=== PATIENT | male | born 1950 | race Caucasian/White ===

== ENCOUNTER → 2023-02-02 07:43 | Outpatient (CLI) | payer OTHER, SELFPAY ==
--- NOTE | 2023-02-02 07:48 | DI.ECHO.S_ITS ---
[facility] +---------+ : : [address] : : : : [id number] : : : : Phone: [phone]+ Echocardiogram Report + + :Name: LINDA WORLEY Study Date: 02/02/2023 Height: 64 in : :[facility] ReadingLocation: Weight: 146 lb : : Gender: Male BSA: 1.7 m2 : :: 1950 Age: 72 yrs BP: 148/88 mmHg: :Reason For Study: DIASTOLIC HEART FAILURE : :Ordering Physician: ROXY, : :MEREDITH Performed By: Amy Parks : :Referring: MEREDITH RAMSEY : + + Interpretation Summary The left ventricle is normal in size. The ejection fraction is estimated to be 55-60%. The right ventricle is grossly normal size. The right ventricular systolic function is normal. There is mild mitral regurgitation. The IVC is of normal diameter and collapses greater than 50% with a sniff. This suggests a low right atrial pressure of 3 mm Hg. There is aortic root sclerosis/calcification. Mild atherosclerotic plaque(s) in the aortic arch. Procedure: A two-dimensional transthoracic echocardiogram with color flow and Doppler was performed. The study quality was technically adequate. There is no prior echocardiogram noted for this patient. The patient was in sinus bradycardia with heart rates between 47-54 bpm during the exam. Left Ventricle: The left ventricle is normal in size. There is borderline concentric left ventricular hypertrophy. There is no thrombus. The ejection fraction is estimated to be 55-60%. There are no focal wall motion abnormalities. MV E/A: 1.0 Med Peak E' Charles: 4.2 cm/sec E/E' med: 14.5. No advanced diastolic dysfunction. Right Ventricle: The right ventricle is grossly normal size. The right ventricular systolic function is normal. Atria: The left atrium is borderline dilated. Right atrial size is normal. There is no Doppler evidence for an interatrial shunt. Mitral Valve: There is mild mitral annular calcification. There is mild mitral regurgitation. Aortic Valve: The aortic valve is trileaflet. There is mild aortic valve sclerosis. There is no aortic valve stenosis. No aortic regurgitation is present. Tricuspid Valve: The tricuspid valve is normal. There is trace tricuspid regurgitation. Pulmonary artery pressures cannot be estimated because of the lack of a measurable TR jet velocity. Pulmonic Valve: The pulmonic valve leaflets are thin and pliable; valve motion is normal. There is trace pulmonic regurgitation. Great Vessels: The aortic root is normal size. There is aortic root sclerosis/calcification. The dimensions of the ascending aorta are normal. Mild atherosclerotic plaque(s) in the aortic arch. The IVC is of normal diameter and collapses greater than 50% with a sniff. This suggests a low right atrial pressure of 3 mm Hg. Pericardium/ Pleura There is no pericardial effusion. There is an anterior echo-free space consistent with a fat pad. There is no pleural effusion. MMode/2D Measurements & Calculations LVIDd: 4.6 cm LVOT diam: 1.9 cm LVIDs: 2.9 cm Ao root diam: 3.0 cm FS: 37.3 % asc Aorta Diam: 3.6 cm EPSS: 0.84 cm Ao Arch Diam (Prox Trans): 2.8 cm IVSd: 1.1 cm LVPWd: 1.0 cm LV pineda. diameter/BSA (cm/m^2): 2.7 LV sys. diameter/BSA (cm/m^2): 1.7 LA A2 area: 17.2 cm2 RA long axis: 5.1 cm LA A4 area: 19.7 cm2 RA area: 14.7 cm2 LA length (vol): 5.1 cm RA vol: 36.4 ml LA vol: 56.7 ml RA : 21.3 ml/m2 LA vol index: 33.1 ml/m2 IVC diam: 1.4 cm RVD1 (basal): 3.8 cm RVD2 (mid): 4.3 cm TAPSE: 2.4 cm Doppler Measurements & Calculations Ao V2 max: 180.4 cm/sec LVOT Max Charles: 124.8 cm/sec Ao V2 mean: 113.4 cm/sec LV V1 max P.2 mmHg Ao max P.0 mmHg LV V1 VTI: 25.9 cm Ao mean P.1 mmHg ALIYAH(I,D): 2.1 cm2 Ao V2 VTI: 36.2 cm ALIYAH(V,D): 2.0 cm2 sev ratio: 0.72 ALIYAH indexed to BSA (cm^2/m^2): 1.2 MV E max charles: 61.1 cm/sec PA V2 max: 122.1 cm/sec MV A max charles: 58.7 cm/sec PA V2 mean: 81.7 cm/sec MV E/A: 1.0 PA mean P.2 mmHg Med Peak E' Charles: 4.2 cm/sec GABRIELLA pr(Accel): 17.3 mmHg E/E' med: 14.5 Lat Peak E' Charles: 5.0 cm/sec E/E' lat: 12.3 E/e' average: 13.4 MV dec time: 0.21 sec SV(LVOT): 75.0 ml Reading Physician:05:47 PM
== END ==
PROVIDERS: PCP Registered Nurse; Referring Provider Internal Medicine; Visit Provider Internal Medicine
DX: I50.32 Chronic diastolic (congestive) heart failure (principal); I08.0 Rheumatic disorders of both mitral and aortic valves; I70.0 Atherosclerosis of aorta
CPT/HCPCS: 93306

== ENCOUNTER 2024-09-20 07:05 | Outpatient (CLI) | payer MEDICARE, SELFPAY ==
[2024-09-20] VITALS (10 sets, daily range): BP systolic 125–173; BP diastolic 64–87; PULSE 46–98; RESP 15–18; TEMP 36.7; O2SAT 92–98
--- NOTE | 2024-09-20 | PATH_ITS ---
[facility] Accession Number: [id number] No. of containers..01 Tissue . 01 Material submitted: . lung - RIGHT UPPER LOBE LUNG . 01 Clinical history: . RIGHT UPPER LOBE LUNG LESION FINE NEEDLE BIOPSY . 01 Diagnosis: LUNG, RIGHT UPPER LOBE LESION, IMAGE-GUIDED BIOPSIES: Adenocarcinoma in situ, with lepidic growth pattern, please see comment. Negative for invasive carcinoma. Negative for lymphoma. [facility] 09/28/2024 1036 Local . 01 Comment: There are atypical pneumocytes lining alveolar spaces for >5 mm, back to back, with mild to only focal moderate cytologic atypia. These atypical pneumocytes display a lepidic growth pattern, without evidence of invasion. . The histologic features support the diagnosis. . In addition, the patient has history of Diffuse Large B-cell Lymphoma. Rare scattered small and mature lymphocytes are seen. Given the patient's history of lymphoma, CD3 and CD20 immunostains are performed, showing predominantly T-cells and only rare B-cells. Overall, there is no morphologic or immunophenotypic evidence of involvement by lymphoma. . As part of ongoing quality rep, this case is also reviewed by Dr. Zulma Aleman and Dr. Charisse Portillo, who agree with the interpretation. . The findings were discussed with Dr. Sharpe on 09/27/2024, at 2:00 p.m. . * This test was developed and its performance characteristics were validated by [employer]. It has not been cleared or approved by the U.S. Food and Drug Administration. . 01 Electronically signed: . Bia Pa MD, Pathologist NPI- [id number] . 01 Gross description: . Received in formalin with two patient identifiers and no site on jar, are three vital needle cores received on Telfa paper measuring 0.4-1.4 cm in length, submitted in A1. ([id number]) /MRV 09/21/2024 2114 Local . 01 Pathologist provided ICD-10: C34.91 . 01 CPT . 353859, [id number], [id number] Specimen Comment: A courtesy copy of this report has been sent to [phone] Performed at: [address] [address] [address], [place], [place] [id number] MD Edvin Gould MD Phone: [phone]
[2024-09-20 08:01] LABS: Platelet Count 193 X10^3/uL (150-400)
[2024-09-20 08:12] LABS: Prothrombin Time 11.7 SECONDS (9.4-12.5)
[2024-09-20 08:14] LABS: PTT Partial Thromboplastin Tim 37 SECONDS (25.1-36.5)
[2024-09-20] MEDS: MIDAZOLAM 2 MG/2 ML VIAL 0.5 MG IV (09:00)
[2024-09-20] MEDS: fentaNYL 100 MCG/2 ML INJ 50 MCG IV (09:00)
--- NOTE | 2024-09-20 09:47 | DI.CT.S_ITS ---
PROCEDURE: CT BIOPSY LUNG RT Sedation analgesia for approximately 15 minutes. INDICATIONS: nodule of upper lobe right lung TECHNIQUE: The indications, alternatives, benefits, risks, and possible complications of the procedure were communicated to the patient. Informed written consent from the patient was obtained and placed in the chart. Continuous EKG and hemodynamic monitoring was started by trained personnel. The patient was brought to the CT suite and train controller spiral CT imaging was performed with localization grid. The appropriate site for percutaneous access to the biopsy target was marked, was prepped and draped sterilely, and was infused with local anaesthesia. Under CT guidance, a core biopsy trocar and needle set was advanced to the biopsy target, and specimen(s) were obtained. The trocar and needle were then removed, and the patient was sent for post-procedure monitoring. COMPARISON: [facility], , XR CHEST 1V, 09/20/2024, 9:42. [place], [place], [place] PET CT FUSION SKULL 2 THIGH, 08/02/2024, 15:09. [place], [place], PET NECK TO MID THIGH, 02/17/2023, 11:46. FINDINGS: Biopsy site: Right lung apex pulmonary nodule measuring 1.7 cm, (08/29). Needle: 18 gauge biopsy needle with introducer trocar. Number of passes: 4, 3 of which yielded solid course. Medications: 1% lidocaine for local anaesthesia. IV Fentanyl and Versed for conscious sedation for approximately 15 minutes (see nursing record). Complications: Tiny right apical pneumothorax. Procedure was well tolerated by the patient. On CXR approximately 30 minutes later no pneumothorax is appreciated. IMPRESSION: Successful CT-guided biopsy of right apical part solid and ground-glass pulmonary nodule measuring 1.7 cm. Dictated by: Garret Rios M.D. on 09/20/2024 at 11:21 Approved by: Garret Rios M.D. on 09/20/2024 at 11:25
--- NOTE | 2024-09-20 09:50 | DI.RAD.S_ITS ---
PROCEDURE: XR CHEST 1V INDICATIONS: post lung biopsy TECHNIQUE: One view of the chest was acquired. COMPARISON: [facility], [place], [place] PET CT FUSION SKULL 2 THIGH, 08/02/2024, 15:09. [facility], CT, CT BIOPSY LUNG RT, 09/20/2024, 8:22. FINDINGS: Surgical changes and devices: None. Lungs and pleura: Tiny opacity at the right apex at the biopsy location. No pneumothorax is appreciated. No pleural effusion. Mediastinum: Mediastinal contours appear unchanged. Heart size is within normal limits. Bones and chest wall: No suspicious bony lesions. Overlying soft tissues appear unremarkable. IMPRESSION: No right-sided pneumothorax post right lung biopsy. Tiny opacity at the right apex due to scant post biopsy hemorrhage. Dictated by: Garret Rios M.D. on 09/20/2024 at 9:55 Approved by: Garret Rios M.D. on 09/20/2024 at 9:58
== END 2024-09-20 10:26 | disposition home or self-care (01) ==
PROVIDERS: Radiology Diagnostic Radiology; PCP Registered Nurse; Referring Provider Internal Medicine Medical Oncology; Visit Provider Internal Medicine Medical Oncology
DX: D02.21 Carcinoma in situ of right bronchus and lung (principal); C83.37 Diffuse large B-cell lymphoma, spleen; R91.1 Solitary pulmonary nodule
CPT/HCPCS: 32408; 71045; 85049; 85610; 85730; 99152; J2250; J3010